=== PATIENT | male | born 1975 | race Caucasian/White ===

== ENCOUNTER 2016-07-05 06:33 | Emergency (ER) | payer BC ==
--- NOTE | 2016-07-15 00:45 | ER ---
ADMIT: 07/05/2016 RM/LOC: ER [facility] MR#: [id number] [address] [facility] [address] [place] [id number] PAT LOYD [address] [place] [id number] Emergency Room Report SEX: M AGE: 40 : 1975 DATE: 07/05/2016 CHIEF COMPLAINT: Feels weird. HISTORY OF PRESENT ILLNESS: The patient is a 40-year-old gentleman, who comes in with a nurse from work as he is feeling odd. Of note, he had recently made a medication change. He had been on Trintellix for a couple weeks and did not feel like it was giving him any benefit so he contacted his primary care physician and was seen in followup yesterday. Decision was made to switch him over to Lexapro. As the patient admits he states he is "cheap" and did not want to waste his old medication since he had already purchased it and pushed to keep taking both while he was transitioning on to Lexapro. This morning was the first day that he took the Lexapro and he took it with his Trintellix. He states that within approximately an hour of taking the medication he began feeling quite wired, but he was already on his way to work at that time. When he got to work, his coworkers noticed that he seemed very tired and almost had a fog so they contacted the nurse who brought him in for evaluation. He denies that he is having any chest pain, difficulty breathing, abdominal pain, nausea, or vomiting. He does state that overall he just feels heavy, feels like he is lightheaded. REVIEW OF SYSTEMS: The patient denies any recent illness, any fevers or chills. PAST MEDICAL HISTORY: Significant for depression. MEDICATIONS: 1. Trintellix. 2. Lexapro. ALLERGIES: PENICILLIN. SOCIAL HISTORY: Denies smoking or drug use. Does admit to occasional alcohol use. PHYSICAL EXAMINATION: VITAL SIGNS: Unremarkable. GENERAL: The patient is alert, will respond to questions, is appropriate, but is somewhat slow to answer. He does appear quite tired, but is not in any distress. HEENT: Pupils are reactive. Extraocular muscles are intact. There is no nystagmus. He is protecting his airway. HEART: Regular rate and rhythm. LUNGS: Clear to auscultation. ABDOMEN: Belly is soft. EXTREMITIES: The patient can move all extremities. NEUROLOGIC: Grossly neurologically intact with no skin lesions or rashes. EMERGENCY DEPARTMENT COURSE: We did monitor the patient here while family member was contacted and came to pick him up. While he was here, his vital ADMIT: 07/05/2016 RM/LOC: [facility] MR#: [id number] [address] [place] [id number] PAT LOYD [address] [place] [address] Emergency Room Report SEX: M AGE: 40 : 1975 signs remained stable and he essentially remained stable as far as his symptoms. As the patient was not in distress and there was no therapeutic action I could take to try to decrease the absorption since it has been 3 hours since he had ingested the medications. Plan at this time was to discharge him home with his to allow the medications to be metabolized and then contact his primary care physician to see if they indeed want him stop Brintellix. I suggest that he does not take both at the same time either to stay on just the Trintellix or the Lexapro, but not to be on both at the same time. The patient is discharged in stable condition. DIAGNOSES: 1. Medication reaction. 2. Somnolence. Raz Khan MD/ bertrand JOB #: [id number] CC: Leo Britton MD, Attending Physician Mandie Sheffield, Family Physician
== END 2016-07-05 07:40 | disposition home or self-care (01) ==
LOC: ER 06:33
DX: R40.0 Somnolence (principal); T43.225A Adverse effect of selective serotonin reuptake inhibitors, initial encounter; F32.9 Major depressive disorder, single episode, unspecified